=== PATIENT | male | born 2000 | race Two or more races ===

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

== ENCOUNTER → 2024-05-25 | Emergency (ER) | payer OTHER ==
[~2024-05-25] VITALS: Ht 175.3 cm; Wt 77.1 kg
[~2024-05-25] MED LIST changes: +ACETAMINOPHEN325 M1 PO; +TUSICOF CAPLET1 EACH PO
== END | disposition left against medical advice (07) ==
LOC: ER 23:21
DX: Z53.21 Procedure and treatment not carried out due to patient leaving prior to being seen by health care provider (principal)

== ENCOUNTER 2024-09-01 17:17 | Emergency (ER) | payer OTHER ==
[~2024-09-01] VITALS: Ht 165.1 cm; Wt 59.9 kg
[2024-09-01] MEDS ORDERED: CEFTRIAXONE SODIUM 1,000 MG VIAL IM STA (18:20)
[2024-09-01] MEDS ORDERED: CEFTRIAXONE SODIUM 1,000 MG VIAL ONE (18:47)
== END 2024-09-01 19:46 | disposition home or self-care (01) ==
LOC: ER 17:19
DX: H60.8X2 Other otitis externa, left ear (principal)
CPT/HCPCS: 96372; 99282; J0696

== ENCOUNTER 2025-02-16 12:18 | Emergency (ER) | payer OTHER ==
[~2025-02-16] VITALS: Ht 154.9 cm; Wt 59.0 kg
== END 2025-02-16 14:45 ==
LOC: ER 12:18
DX: H00.011 Hordeolum externum right upper eyelid (principal)